=== PATIENT | female | born 2000 | race Two or more races ===

== ENCOUNTER → 2020-02-12 | Outpatient (CLI) | payer OTHER ==
[~2020-02-12] MED LIST: AMOX50SU PO; Amoxicillin500 MG PO; Norco 5-325 Ta1 EACH PO; PROCODE120 PO; Pepcid20 MG PO
== END ==
LOC: LAB SHORT 17:41 → LAB 17:41
DX: N89.8 Other specified noninflammatory disorders of vagina (principal)
CPT/HCPCS: 87070; 87205

== ENCOUNTER → 2020-04-22 | Outpatient (CLI) | payer OTHER | LOC: LAB SHORT 19:01 → LAB 19:01 | PROVIDERS: Registered Nurse Community Health | DX: Z01.419 Encounter for gynecological examination (general) (routine) without abnormal findings (principal) | CPT/HCPCS: G0123 ==